=== PATIENT | female | born 1990 | race Caucasian/White ===

== ENCOUNTER 2019-06-23 14:49 | Emergency (ER) | payer OTHER, SELFPAY ==
[2019-06-23 15:08] VITALS: BP 123/65; PULSE 84; RESP 18; TEMP 37.7; O2SAT 99
--- NOTE | 2019-06-23 15:26 | ED.GENADULT ---
HPI - General Adult General Chief complaint: Upper Respiratory Infection Stated complaint: Possible Strep Time Seen by Provider: 06/23/19 15:27 Source: patient and RN notes reviewed Mode of arrival: ambulatory Limitations: no limitations History of Present Illness HPI narrative: This is a 28 years old female presented office for evaluation of sore throat for 5-day. Associated with stuffy nose, ear clogged, and fevers yesterday. She has been taking DayQuil and Chloraseptic spray with no relief. She is smoke half a pack a day.Stated her knees and nephew are sick with similar symptoms. Related Data Allergies Allergy/AdvReac Type Severity Reaction Status Date / Time latex Allergy Mild Verified 01/25/10 00:15 PROPOXYPHENE NAPSYLATE Allergy Intermediate Uncoded 02/10/10 20:35 Review of Systems Review of Systems: Narrative: CONSTITUTIONAL: Reports fever, chills ENT: Reports rhinorrhea, congestion, sore throat, otalgia. CARDIOVASCULAR: Denies chest pain RESPIRATORY: Reports a little cough GASTROINTESTINAL: Denies abdominal pain, nausea, vomiting, diarrhea. GENITOURINARY: Denies urinary symptoms SKIN: Denies rash MUSCULOSKELETAL: Denies acute back pain NEUROLOGIC: Denies lightheaded PMFSH Social History Social History (Updated 06/23/19 @ 15:33 by FREDA Blankenship) Smoking status: Current every day smoker Comments At time of signature, I agree with nursing past medical, surgical, social and family history. There is no relevant family history pertinent to the presenting complaint. Exam Narrative: Exam Narrative: GENERAL: This is a well-nourished, well-developed patient, in no apparent distress. EYES: Sclera clear/white. Vision is grossly intact. EARS: External ears normal, auditory canals clear and without drainage, TMs normal without perforation. Hearing grossly intact. NOSE: External nose normal with no obvious nasal discharge, nares edematous and erythema. THROAT: Mucous membranes moist, posterior pharynx erythema with drainage NECK: Neck supple, non-tender without lymphadenopathy, masses or thyromegaly. CARDIOVASCULAR: Regular rate and rhythm without murmurs, gallops, or rubs. RESPIRATORY: Clear to auscultation. Breath sounds equal bilaterally. No wheezes, rales, or rhonchi. GASTROINTESTINAL: Abdomen soft, non-tender, nondistended. Bowel sounds are active. No hepato-splenomegaly, or palpable masses. No guarding. SKIN: warm, intact with no suspicious lesions or rash, good texture and turgor. NEURO: awake, alert, and oriented to person, place and time. There were no obvious focal neurologic abnormalities. Steady gait Julissa Coma Scale Eye Opening: Spontaneous 4 Julissa Coma Scale Motor: Obeys Commands 6 [place] Coma Scale Verbal: Oriented 5 Course Vital Signs Vital signs: Vital Signs Temperature 99.8 F H 06/23/19 15:08 Pulse Rate 84 06/23/19 15:08 Respiratory Rate 18 06/23/19 15:08 Blood Pressure 123/65 06/23/19 15:08 Pulse Oximetry 99 06/23/19 15:08 Temperature 99.8 F H 06/23/19 15:08 Pulse Rate 84 06/23/19 15:08 Respiratory Rate 18 06/23/19 15:08 Blood Pressure 123/65 06/23/19 15:08 Pulse Oximetry 99 06/23/19 15:08 Medical Decision Making MDM Narrative Medical decision making narrative: Discharge instructions reviewed with patient, as well as provided in writing per nursing staff. The instructions also include specific and strict return/GO TO THE ER as well as f/u information. All questions have been answered, and the patient deny any further questions with discharge and discharge plan. Differential Diagnosis Differential Diagnosis: pneumonia, Allergic Rhinitis, Upper respiratory cough syndrome, Pharyngitis, Sinusitis, Bronchitis, otitis media, viral URI, Asthma/reactive airway disease, influenza Medical Records Medical records reviewed: Yes I reviewed the patient's medical records. Vital Signs Vital Signs: Vital Signs Temperature 99.8 F H 06/23/19 15:08
== END 2019-06-23 15:41 | disposition home or self-care (01) ==
PROVIDERS: Emergency Provider Nurse Practitioner; PCP Family Medicine
DX: J06.9 Acute upper respiratory infection, unspecified (principal); R05 Cough; F17.200 Nicotine dependence, unspecified, uncomplicated
CPT/HCPCS: 87081; 87880; 99203; G0463